=== PATIENT | male | born 1985 | race Caucasian/White ===

== ENCOUNTER 2022-01-29 20:31 | Emergency (ER) | payer OTHER, SELFPAY ==
--- NOTE | ~2022-01-29 | XR_ITS ---
EXAMINATION: XR ankle RT min 3V DATE: 01/29/2022 20:56 INDICATION: Lateral right ankle pain and swelling post twisting ankle injury TECHNIQUE: Anteroposterior, oblique, mortise, and lateral views of the right ankle were obtained. COMPARISON: None. FINDINGS: Alignment is normal. No fracture. Joint spaces are well maintained. No ankle joint effusion. Promin ent soft tissue swelling about the lateral malleolus. IMPRESSION: 1. No osseous abnormality. Reviewed, dictated and finalized at location A. ER ENGINE[facility] HELPER IMPRESSION: 1. No osseous abnormality.
--- NOTE | 2022-01-29 20:36 | ED.LOWEXIN ---
HPI - Extremity Injury (Lower) General Chief Complaint: Unspecified Stated Complaint: Rt ankle pain Time Seen by Provider: 01/29/22 20:37 Source: patient Mode of arrival: wheelchair Limitations: no limitations History of Present Illness complaint: ankle injury Onset (ago): hour(s) (6) Injury: Right: ankle Type of Injury: inversion Place: work Severity: moderate Relieving factors: rest Exacerbating factors: nothing Context: walking Associated symptoms: snap/pop sensation and swelling Other symptoms: none Related Data Home Medications Medication Instructions Recorded Confirmed No Home Medications 01/29/22 01/29/22 Allergies Allergy/AdvReac Type Severity Reaction Status Date / Time No Known Allergies Allergy Mild Verified 12/13/09 00:29 Review of Systems Review of Systems: All systems reviewed & are unremarkable except as noted in HPI and below PMFSH Past Medical History Medical History (Updated 01/29/22 @ 21:12 by Mart Merritt MD) No active medical problems Surgical History Surgical History (Updated 01/29/22 @ 20:47 by Mart Merritt MD) No pertinent past surgical history Social History Social History (Updated 01/29/22 @ 20:49 by Mart Merritt MD) Smoking packs per day: 1 Smoking cigarettes per day: 20.0 Smoking status: Current every day smoker Tobacco type: cigarettes and e-cigarettes/vaping Additional smoking assessment comments: trying to quit cigarettes and only vape but still has nicotine in the vape Exam Const: General: healthy appearing, no acute distress and alert Nutritional Appearance: average body habitus and well nourished Orientation/consciousness: patient oriented x3 HENMT: Head: normal to inspection Face and sinus: normal facial exam Mouth: Yes moist mucous membranes Eyes: Conjunctivae: conjunctivae normal Pupils: Equal, round and reactive pupils present EOM: EOMs intact bilaterally Neck: Neck: normal visual inspection Resp: Effort & Inspection: normal respiratory effort Auscultation: clear to auscultation bilaterally Cardio: Rate: regular rate Rhythm: regular rhythm GI: GI Palp: Yes Soft to palpation and No Tenderness to palpation present (GI) Auscultation: normal bowel sounds Back/Spine/Pelvis: Cervical Spine: cervical ROM normal Thoracic/Lumbar Spine: thoraco-lumbar ROM normal Skin: General skin exam: normal color Rashes: no rashes Neuro: General: patient oriented x3, moves all extremities, no meningeal signs, no focal motor deficits and CN's II-XI intact bilaterally Speech: normal speech Gait exam (Neuro): Normal gait present Extrem: General: normal exam except as noted Right lower extremity: ankle Details: tenderness Location: of the lateral malleolus, swelling Details: laterally and anteriorly and abnormal ROM Details: pain with active ROM Details: with inversion and with eversion and pain with passive ROM Details: with inversion and with eversion Psych: Appearance: grossly normal and well kempt Mental Status: mental status grossly normal Affect: normal affect Attitude: cooperative Thought content: Yes Normal thought content present Course Vital Signs Vital signs: Vital Signs Temperature 36.6 C 01/29/22 20:41 Pulse Rate 92 01/29/22 20:41 Respiratory Rate 20 01/29/22 20:41 Blood Pressure 126/74 01/29/22 20:41 Pulse Oximetry 100 01/29/22 20:41 Temperature 36.6 C 01/29/22 21:21 Pulse Rate 78 01/29/22 21:21 Respiratory Rate 20 01/29/22 21:21 Blood Pressure 120/74 01/29/22 21:21 Pulse Oximetry 99 01/29/22 21:21 MDM - Extremity Injury (Lower) Imaging Data Radiologist's impression: no fracture Discharge Plan Discharge Clinical Impression: Ankle sprain Qualifiers: Encounter type: initial encounter Involved ligament of ankle: tibiofibular ligament Laterality: right Qualified Code(s): S93.431A - Sprain of tibiofibular ligament of right ankle, initial encounter Patient Disposition:
[2022-01-29 20:41] VITALS: BP 126/74; PULSE 92; RESP 20; TEMP 36.6; O2SAT 100
[2022-01-29 21:21] VITALS: BP 120/74; PULSE 78; RESP 20; TEMP 36.6; O2SAT 99
== END 2022-01-29 21:22 | disposition home or self-care (01) ==
PROVIDERS: Emergency Provider Emergency Medicine
DX: S93.431A Sprain of tibiofibular ligament of right ankle, initial encounter (principal)
CPT/HCPCS: 29515; 73610; 99283; L4350

== ENCOUNTER 2023-03-11 22:13 | Emergency (ER) | payer OTHER, SELFPAY ==
[2023-03-11 22:25] VITALS: BP 128/68; PULSE 116; RESP 20; TEMP 37.2; O2SAT 96
[2023-03-11 23:54] LABS: Strep Group A RT-PCR NOT DETECTED (Negative)
== END 2023-03-12 00:15 | disposition left against medical advice (07) ==
PROVIDERS: Emergency Provider Emergency Medicine
DX: J02.9 Acute pharyngitis, unspecified (principal)
CPT/HCPCS: 87651; 99199

== ENCOUNTER 2025-03-04 16:10 | Emergency (ER) | payer BC, SELFPAY ==
--- NOTE | ~2025-03-04 | CT_ITS ---
CT soft tissue neck w con Ordering provider: Maria A Hidalgo History: 39 years Male with . R tonsillar abscesses . Comparison: None. Technique: CT soft tissues neck was performed with contrast. . Automated exposure control and iterat lorelei reconstruction technique were employed. The dose-length product was 522.43 mGy-cm. 100 mL Omnipaq ue 350 was given IV. Findings: LOWER HEAD: The visualized brain parenchyma, optic globes/orbits and mastoids are normal. Left maxi llary sinusitis. SALIVARY GLANDS: Normal. THYROID: Normal. SUPRAHYOID DEEP SPACES: Small right posterior triangle lymph nodes. CAROTID ARTERIES: Normal. JUGULAR VEINS: Normal. External jugular vein is noted on the left side. TONSILS: Right tonsillar abscess measuring 1.7 x 1.8 cm noted. Another locule anteriorly is noted whi ch measures about 1 cm. ORAL CAVITY: Partially obscured by dental amalgam but normal as visualized. PHARYNX, LARYNX AND TRACHEA: Patent and normal. No prevertebral soft tissue swelling. Slight narrowin g of the parapharyngeal area in the right side is noted. SUPERFICIAL SOFT TISSUES: Normal. No lymphadenopathy or neck mass. THORACIC INLET/VISUALIZED UPPER CHEST: Normal. SKELETAL: Normal. IMPRESSION: 1. Right tonsillar abscess. 2. Small lymph nodes in the right posterior triangle Reviewed, dictated and finalized at location A.
--- OUTSIDE RECORDS SUMMARY | 2025-03-04 16:14 | XMS_ITS | Encounter Summary ---
Author Organization [facility] Address [address] [place] [id number] Care Team Providers Care Medical Typist Name Role Phone Favio Still MD Primary Care Provider [phone] Encounter Details Date Type Department Care Team (Late st Contact Info) Description 03/03/2025 Scan [facility] [address] [place] [address] Scanned, [facility] Social History Tobacco Use Types Packs/Day Years Used Date Smoking Tobacco: Some Days Cigarettes Smokeless Tobacco: Current Chew Alcohol Use Standard Drinks/Week Comments Yes 0 (1 standard drink = 0.6 oz pur e alcohol) socially Sex and Gender Information Value Date Recorded Sex Assigned at Male 03/03/2025 5:32 PM CDT Legal Sex Male 7:51 AM CDT Gender Identity Not on file Sexual Orientation Not on file documented as of this encounter Plan of Treatment Not on file documented as of this encounter Visit Diagnoses Not on filedocumented in this encounter Additional Health Concerns Infection Onset Date Last Indicated Resolved Time COVID-19 Rule Out 03/03/2025 03/03/2025 03/03/2025 2:33 PM CDT Respiratory Rule-Out 03/03/2025 03/03/2025 025 2:39 PM CDT documented as of this encounter Care Teams Medical Typist Relationship Specialty Start Date End Date Favio Still MD [address] [place] [phone] PCP - General FAMILY PRACTICE 09/28/22 documented as of this encounter
--- OUTSIDE RECORDS SUMMARY | 2025-03-04 16:14 | XMS_ITS | Encounter Summary ---
Author Organization [facility] Address [address] [place] [id number] Care Team Providers Care Tobacco Prevention Health Educator Name Role Phone Favio Still MD Primary Care Provider [phone] Reason for Referral * Imaging (Emergency) - New Request Specialty Diagnoses / Procedures Referred By Von kerns Referred To Contact RADIOLOGY Procedures CT SOFT TISSUE NECK W Inderjit Patel MD [address] [place] [address] Phone: tel: fax: Referral ID Status Reason Start Date Expiration Date V isits Requested Visits Authorized [id number] New Request 03/03/2025 03/03/2026 1 1 Reason for Visit * Reason Comments Facial Pain Encounter Details Date Type Department Care Team (Late st Contact Info) Description 03/03/2025 1:40 PM CDT - 03/03/2025 6:06 PM CDT Emergency [facility] [address] [place] [address] [place] [address] Inderjit Lincoln MD [address] [place] [id number] Facial Pain Discharge Disposition: Left Against Medical Advice Social History Tobacco Use Types Packs/Day Years [...] on file documented as of this encounter Last Filed Vital Signs Vital Sign Reading Time Taken Comments Blood Pressure 123/79 03/03/2025 5:18 PM CDT Pulse 69 03/03/2025 5:18 PM CDT Temperature 37 C (98.6 F) 03/03/2025 5:18 PM CDT Respiratory Rate 16 03/03/2025 5:18 PM CDT Oxygen Saturation 95% 03/03/2025 5:18 PM CDT Inhaled Oxygen Concentration - - Weight 91.6 kg (202 lb) 03/03/2025 1:41 PM CDT Height 172.7 cm (5' 8 ) 03/03/2025 1:41 PM CDT Body Mass Index 30.71 03/03/2025 1:41 PM CDT documented in this encounter Medications at Time of Discharge amphetamine-dextr oamphetamine (ADDERALL) 15 MG tablet Take 1 tablet (15 mg total) by mouth 2 (two) times daily. Armodafinil 150 MG Tab Take 150 mg by mouth daily. HYDROcodone-aceta minophen (NORCO) 5-325 MG tabletIndications :Acute Pain < 3 Day Supply Take 1-2 tablets by mouth every 6 (six) hours as needed. Indications: Acute Pain < 3 Day Supply 12 tablet 04/29/2023 HYDROcodone-aceta minophen (NORCO) 5-325 MG tabletIndications :Acute Pain < 7 Day Supply Take 1-2 tablets by mouth every 6 (six) hours as needed for Pain. Indications: Acute Pain < 7 Day Supply 15 tablet 05/02/2023 documented as of this encounter ED Notes * Olga Patterson RN - 03/03/2025 6:00 PM CDT Ambulatory out of unit without difficulty. * Olga Patterson RN - 03/03/2025 5:56 PM CDT AMA paper signed. * Olga Patterson RN - 03/03/2025 5:48 PM CDT ERP and this nurse to room to discuss plan of care and risks and benefits of driving themselves to S. Patient again refusing ambulance transport. Wanting to go by POV. AMA form explained to patient. Repeated risks and benefits with patient and . * Olga Patterson RN - 03/03/2025 5:45 PM CDT Patient refusing ambulance transfer. ERP notified. * Olga Patterson RN - 03/03/2025 5:39 PM CDT EMS arrived for transfer.Report given. * Olga Patterson RN - 03/03/2025 5:18 PM CDT Resting offers no c/o. ERP in to talk to patient and family. Discussed plan of care. Patient agreeable to plan for transfer. * Olga Patterson RN - 03/03/2025 4:00 PM CDT Resting quietly offers no c/o. Waiting for test results. * Inderjit Lincoln MD - 03/03/2025 3:31 PM CDT Chief Complaint Chief Complaint Patient presents with Facial Pain History of Present Illness Patient is a 39-year-old male who presents with complaint of a sore throat that started last evening. Patient states he went to bed here in slight sore throat but is worse this morning. Patient states that hurts to swallow. Patient is complaining of pain radiating from the right side of his throat up to his ear. He also notes body aches. He denies subjective fevers. He denies any runny nose or cough. Mom is concerned that he possibly could have some type of throat abscess. Patient has not been taking any antibiotics recently. All review of systems negative. Medical History ALLERGIES: Review of patient's allergies indicates: No Known Allergies MEDICATIONS: Prior to Admission medications Medication Sig Start Date End Date Taking? Authorizing Provider amphetamine-dextroamphetamine (ADDERALL) 15 MG tablet Take 1 tablet (15 mg total) by mouth 2 (two) times daily. Yes Default History Genericprovider Armodafinil 150 MG Tab Take 150 mg by mouth daily. Patient not taking: Reported on 05/15/2023 Default History Genericprovider HYDROcodone-acetaminophen (NORCO) 5-325 MG tablet Take 1-2 tablets by mouth every 6 (six) hours as needed. Indications: Acute Pain < 3 Day Supply Patient not taking: Reported on 05/15/2023 04/29/23 Bobby Mayorga MD HYDROcodone-acetaminophen (NORCO) 5-325 MG tablet Take 1-2 tablets by mouth every 6 (six) hours as needed for Pain. Indications: Acute Pain < 7 Day Supply Patient not taking: Reported on 05/15/2023 05/02/23 Michael Marroquin MD PAST MEDICAL HISTORY: Past Medical History: Diagnosis Date Shift work sleep disorder PAST SURGICAL HISTORY: Past Surgical History: Procedure Laterality Date CARPAL TUNNEL RELEASE Right 04/18/2023 CARPAL TUNNEL RELEASE Left HC TRANSPOSITION ULNAR NERVE Right 04/18/2023 HERNIA REPAIR FAMILY HISTORY: Family History Problem Relation Name Age of Onset No Known Problems Mother No Known Problems Father SOCIAL HISTORY: Social History Tobacco Use Smoking status: Some Days Current packs/day: 0.10 Types: Cigarettes Smokeless tobacco: Current Types: Chew Vaping Use Vaping status: Never Used Substance Use Topics Alcohol use: Yes Comment: socially Drug use: Not Currently Review of Systems Review of Systems Constitutional: Positive for chills and fever. HENT: Positive for ear pain and sore throat. Negative for drooling and rhinorrhea. Eyes: Negative for redness and visual disturbance. Respiratory: Negative for cough, shortness of breath and wheezing. Cardiovascular: Negative for chest pain and palpitations. Gastrointestinal: Negative for abdominal pain, nausea and vomiting. Genitourinary: Negative for dysuria, flank pain, hematuria and urgency. Musculoskeletal: Positive for myalgias. Negative for back pain and neck pain. Skin: Negative for color change and rash. Neurological: Negative for dizziness and weakness. Psychiatric/Behavioral: Negative. Physical Exam Filed Vitals: 03/03/25 1530 03/03/25 1600 03/03/25 1630 03/03/25 1700 BP: 114/68 115/76 119/82 123/79 Pulse: Resp: Temp: TempSrc: SpO2: 93% 98% 96% 94% Weight: Height: Physical Exam Vitals and nursing note reviewed. Constitutional: General: He is not in acute distress. Appearance: Normal appearance. He is normal weight. He is not ill-appearing or toxic-appearing. HENT: Head: Normocephalic and atraumatic. Jaw: Trismus present. No pain on movement. Right Ear: Tympanic membrane normal. Left Ear: Tympanic membrane normal. Nose: Nose normal. No congestion or rhinorrhea. Mouth/Throat: Mouth: Mucous membranes are moist. Pharynx: Uvula midline. Pharyngeal swelling and posterior oropharyngeal erythema present. No oropharyngeal exudate or uvula swelling. Comments: Patient Eyes: Extraocular Movements: Extraocular movements intact. Pupils: Pupils are equal, round, and reactive to light. Cardiovascular: Rate and Rhythm: Normal rate and regular rhythm. Pulses: Normal pulses. Heart sounds: No murmur heard. Pulmonary: Effort: No respiratory distress. Breath sounds: No wheezing. Abdominal: General: Bowel sounds are normal. Palpations: Abdomen is soft. Tenderness: There is no abdominal tenderness. There is no guarding. Musculoskeletal: General: No tenderness or deformity. Normal range of motion. Cervical back: Normal range of motion and neck supple. Lymphadenopathy: Cervical: Cervical adenopathy present. Skin: General: Skin is warm and dry. Neurological: General: No focal deficit present. Mental Status: He is alert and oriented to person, place, and time. Cranial Nerves: No cranial nerve deficit. Psychiatric: Mood and Affect: Mood normal. Diagnostic Studies / Procedures ELECTROCARDIOGRAMS: No results found for this visit on 03/03/25. LABORATORY STUDIES: Results for orders placed or performed during the hospital encounter of 03/03/25 CBC W/DIFF AUTOMATED Result Value Ref Range WBC 11.67 (H) 4.50 - 11.00 x10'3/uL RBC 5.16 4.50 - 5.90 x10'6/uL HGB 16.4 14.0 - 18.0 G/DL HCT 48.3 43.0 - 54.0 % MCV 93.6 80.0 - 100.0 FL MCH 31.8 26.0 - 34.0 PG MCHC 34.0 31.0 - 37.0 G/DL RDW 13.1 11.6 - 14.8 % PLT 281 130 - 400 x10'3/uL MPV 9.9 7.0 - 12.0 FL CBC COMMENT AUTOMATED RBC MORPHOLOGY AND PLATELET EVALUATION NORMAL NEUTROPHILS % 83.6 (H) 40.0 - 74.0 % LYMPHOCYTES % 7.1 (L) 14.0 - 46.0 % MONOCYTES % 6.6 4.0 - 13.0 % EOSINOPHILS 2.1 0.0 - 7.0 % BASOPHILS 0.3 0.0 - 3.0 % IMMATURE GRANS % 0.3 0.0 - 0.43 % NRBC % 0.0 % ABS. NEUTROPHILS TOTAL 9.76 (H) 1.69 - 7.81 x10'3/uL ABS. LYMPHOCYTES 0.83 0.21 - 5.42 x10'3/uL ABS. MONOCYTES 0.77 0.04 - 1.37 x10'3/uL ABS. EOSINOPHILS 0.24 0.00 - 0.68 x10'3/uL ABS. BASOPHILS 0.04 0.00 - 0.08 x10'3/uL ABS. IMMATURE GRANULOCYTES 0.03 0.00 - 0.06 x10'3/uL ABS. NUCLEATED RBC'S 0.00 0.00 - 0.01 x10'3/uL BASIC METABOLIC PANEL Result Value Ref Range GLUCOSE 94 70 - 99 MG/DL BUN 16 7 - 18 MG/DL CREATININE S/P/B 1.28 (H) 0.50 - 1.20 MG/DL SODIUM S/P/B 139 136 - 145 MMOL/L POTASSIUM S/P/B 4.2 3.5 - 5.1 MMOL/L CHLORIDE S/P/B 103 100 - 108 MMOL/L CO2 30.2 21.0 - 32.0 MMOL/L CALCIUM S/P/B 8.4 (L) 8.5 - 10.1 MG/DL ANION GAP 5.8 5.0 - 15.0 MMOL/L BUN CREATININE RATIO 12.5 6 - 26 GFR ESTIMATE 74 (L) >90 ML/MIN/1.73 M2 CORONAVIRUS (COVID 19) Specimen: NASOPHARYNGEAL SWAB Result Value Ref Range CORONAVIRUS SARS COV 2 RNA NEGATIVE NEGATIVE SPECIMEN TYPE NASAL INFLUENZA A & B Specimen: NASAL Result Value Ref Range SPECIMEN TYPE NASOPHARYNX INFLUENZA A NEGATIVE NEGATIVE INFLUENZA B NEGATIVE NEGATIVE STREP A RAPID Specimen: THROAT Result Value Ref Range SPECIMEN TYPE THROAT RAPID STREP TEST NEGATIVE NEGATIVE IMAGING STUDIES CT SOFT TISSUE NECK W CON Final Result by User, [id number] (03/03 155) [address] [place] [address] EXAM: CT SOFT TISSUE NECK W CON DATE: 03/03/2025 COMPARISON: None INDICATION: Right side neck pain and swelling. Difficulty swallowing and sore throat. TECHNIQUE: Postcontrast imaging with 95 cc intravenous Isovue-370 right antecubital fossa. A dose lowering technique was used for this procedure, which may include, but is not limited to, dose reduction technique, automated exposure control, iterative reconstruction, ALARA (As Low As Reasonably Achievable), or Image Gently techniques. FINDINGS: There is moderate severity artifact from dental work. The region of the right palatine tonsil is diffusely enlarged compared to the left. There is mild flattening of the right lateral margin of the oropharynx. Best seen on the axial images are two small hypodense foci within this soft tissue fullness. These most likely represent small abscesses within the tonsil. Each measures about 6 mm. There may be a third similar appearing finding deeper near an external carotid artery branch. Normal enhancement of the parotid glands, submandibular glands, and thyroid. Normal prevertebral soft tissue thickness. Normal epiglottis. Normal appearance of a closed glottis. 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 Symmetric size of the internal jugular veins. With minimal fat in the neck, no lymph node enlargement. IMPRESSION: Abnormal appearance of the partially visualized right palatine tonsil region. Referred By: Interpreted By: Amrit Trevino MD, 03/03/2025 3:37 PM ED Course / Medical Decision Making Reevaluation at 3:58 PM. Patient is resting after receiving the Toradol and the Medrol. Patient appears to have tonsillar abscesses. Case was discussed with Dr. Trevino via the phone. I will call the [place] connect line exam feel the patient needs to be transferred for ENT evaluation this evening. 5:01 PM Case was discussed with Dr. Ortega, ENT for [facility]. He states that he would like to look at the CT scans himself and call me back. 5:[address] Ortega states that he was not able to review the CT report but feels the patient should be sent to [facility] for IV antibiotics and steroids overnight and ENT evaluation. 5:49 PM. The patient was about ready to get on the ambulance to go to [facility] when he change his mind. He states that he did not like the attitude of the ambulance crew and so he does notwant a ride in any ambulance to go to [place]. Patient is refusing ambulance transfer but will have his family member drive him to about be evaluated by ENT. I informed the patient that he would like to leave against my medical advice. Patient is of sound mind and judgment. The risks associated with the patient's actions were explained to the patient. Patient understands that they are foregoing the recommended treatment for their condition. Alternative treatment options were also suggested to the patient patient refused those treatment options. Patient signed the AMA form under their own volition. Patient voiced understanding with the AMA decision. Patient understands that foregoing the recommended treatment may result in permanent disability and including . Patient was urged to stay and reconsider. Patient refused to stay and reconsider any other options and signed the AMA form under their own volition. was was present for the discussion and for the signing of the form. Patient was urged to return with any concerns. Medical Decision Making Amount and/or Complexity of Data Reviewed Independent Historian: Details: Details of the history provided by the patient and his family members External Data Reviewed: notes. Details: Previous ED notes were reviewed Labs: ordered. Decision-making details documented in ED Course. Radiology: ordered. Decision-making details documented in ED Course. Discussion of management or test interpretation with external provider(s): Discussed case with the ENT surgeon at [facility] in [place]. Reviewed the CT findings. He accepted the patientfor transfer for further treatment and evaluation while Risk Decision regarding hospitalization. Clinical Impression Tonsillar abscess (Primary) Disposition: Transfer to Another Facility Inderjit Lincoln MD 03/03/252247 * Olga Patterson RN - 03/03/2025 3:00 PM CDT Resting eyes closed * Olga Patterson RN - 03/03/2025 3:00 PM CDT States feeling relief of pain following medication. Resting, lights turned down given warm blanket.Family remains in room. * Olga Patterson RN - 03/03/2025 2:23 PM CDT Returned from CT. Tolerated well. * Olga Patterson RN - 03/03/2025 1:40 PM CDT C/O pain and swelling to right side of face. Unknown injury. Throat sore. Pain with swallowing. Woke up around 0300 with pain. Color pink respirations even and unlabored. documented in this encounter Plan of Treatment Not on file documented as of this encounter Procedures Procedure Name Priority Date/Time Associated Diagnosis Comments CT SOFT TISSUE NECK W CON STAT 03/03/2025 2:19 PM CDT CORONAVIRUS (COVID 19) STAT 03/03/2025 2:00 PM CDT INFLUENZA A & B STAT 03/03/2025 2:00 PM CDT STREP A RAPID STAT 03/03/2025 2:00 PM CDT BASIC METABOLIC PANEL STAT 03/03/2025 2:00 PM CDT CBC W/DIFF AUTOMATED STAT 03/03/2025 2:00 PM CDT documented in this encounter Results * CT SOFT TISSUE NECK W CON (03/03/2025 2:19 PM CDT) Anatomical Region Laterality Modality Neck Computed Tomogra phy 03/03/2025 3:37 PM CDT Impressions 03/03/2025 3:47 PM CDT IMPRESSION: Abnormal appearance of the partially visualized right palatine tonsil region. Referred By: Interpreted By: Amrit Trevino MD, 03/03/2025 3:37 PM Narrative 03/03/2025 3:[address] [place] [address] EXAM: CT SOFT TISSUE NECK W CON DATE: 03/03/2025 COMPARISON: None INDICATION: Right side neck pain and swelling. Difficulty swallowing and sore throat. TECHNIQUE: Postcontrast imaging with 95 cc intravenous Isovue-370 right antecubital fossa. A dose lowering technique was used for this procedure, which may include, but is not limited to, dose reduction technique, automated exposure control, iterative reconstruction, ALARA (As Low As Reasonably Achievable), or Image Gently techniques. FINDINGS: There is moderate severity artifact from dental work. The region of the right palatine tonsil is diffusely enlarged compared to the left. There is mild flattening of the right lateral margin of the oropharynx. Best seen on the axial images are two small hypodense foci within this soft tissue fullness. These most likely represent small abscesses within the tonsil. Each measures about 6 mm. There may be a third similar appearing finding deeper near an external carotid artery branch. Normal enhancement of the parotid glands, submandibular glands, and thyroid. Normal prevertebral soft tissue thickness. Normal epiglottis. Normal appearance of a closed glottis. 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 Symmetric size of the internal jugular veins. With minimal fat in the neck, no lymph node enlargement. Procedure Note Amrit Trevino MD - 03/03/[address] [place] [address] EXAM: CT SOFT TISSUE NECK W CON DATE: 03/03/2025 COMPARISON: None INDICATION: Right side neck pain and swelling. Difficulty swallowing andsore throat. TECHNIQUE: Postcontrast imaging with 95 cc intravenous Isovue-370 rightantecubital fossa. A dose lowering technique was used for this procedure, which may include,but is not limited to, dose reduction technique, automated exposurecontrol, iterative reconstruction, ALARA (As Low As ReasonablyAchievable), or Image Gently techniques. FINDINGS: There is moderate severity artifact from dental work. Theregion of the right palatine tonsil is diffusely enlarged compared to theleft. There is mild flattening of the right lateral margin of theoropharynx. Best seen on the axial images are two small hypodense fociwithin this soft tissue fullness. These most likely represent smallabscesses within the tonsil. Each measures about 6 mm. There may be athird similar appearing finding deeper near an external carotid arterybranch. Normal enhancement of the parotid glands, submandibular glands, andthyroid. Normal prevertebral soft tissue thickness. Normal epiglottis.Normal appearance of a closed glottis. Prominent left anterior jugularvein is probably congenital variation. Symmetric size of the internaljugular veins. With minimal fat in the neck, no lymph node enlargement. IMPRESSION: Abnormal appearance of the partially visualized right palatinetonsil region. Referred By: Interpreted By: Amrit Trevino MD, 03/03/2025 3:37 PM us Inderjit Lincoln MD CT Final Result * (ABNORMAL) BASIC METABOLIC PANEL (03/03/2025 2:00 PM CDT) [facility] GLUCOSE 94 70 - 99 MG/DL 03/03/2025 2:31 PM CDT [facility] BUN 16 7 - 18 MG/DL 03/03/2025 2:31 PM CDT [facility] CREATININE S/P/B 1.28(H) 0.50 - 1.20 MG/DL 03/03/2025 2:31 PM CDT [facility] SODIUM S/P/B 139 136 - 145 MMOL/L 03/03/2025 2:31 PM CDT [facility] POTASSIUM S/P/B 4.2 3.5 - 5.1 MMOL/L 03/03/2025 2:31 PM CDT [facility] CHLORIDE S/P/B 103 100 - 108 MMOL/L 03/03/2025 2:31 PM CDT [facility] CO2 30.2 21.0 - 32.0 MMOL/L 03/03/2025 2:31 PM CDT [facility] CALCIUM S/P/B 8.4(L) 8.5 - 10.1 MG/DL 03/03/2025 2:31 PM CDT [facility] ANION GAP 5.8 5.0 - 15.0 MMOL/L 03/03/2025 2:31 PM CDT [facility] BUN CREATININE RATIO 12.5 6 - 26 03/03/2025 2:31 PM CDT [facility] GFR ESTIMATE 74(L) >90 ML/MIN/1.7 3 M2 03/03/2025 2:31 PM CDT [facility] Comment: NOTE: eGFR is not calculated for patients <18 years of age. This is an estimated GFR calculation using the new CKD EPI creatinine equation without race and so does not require a correction factor for race. This estimated GFR should not be used for calculating drug doses. 03/03/2025 2:00 PM CDT us Inderjit Lincoln MD LABORATORY Final Result [facility] [address] [place] [address], * (ABNORMAL) CBC W/DIFF AUTOMATED (03/03/2025 2:00 PM CDT) WBC 11.67(H) 4.50 - 11.00 x10'3/uL 03/03/2025 2:20 PM CDT [facility] RBC 5.16 4.50 - 5.90 x10'6/uL 03/03/2025 2:20 PM CDT [facility] HGB 16.4 14.0 - 18.0 G/DL 03/03/2025 2:20 PM CDT [facility] HCT 48.3 43.0 - 54.0 % 03/03/2025 2:20 PM CDT [facility] MCV 93.6 80.0 - 100.0 FL 03/03/2025 2:20 PM CDT [facility] MCH 31.8 26.0 - 34.0 PG 03/03/2025 2:20 PM CDT [facility] MCHC 34.0 31.0 - 37.0 G/DL 03/03/2025 2:20 PM CDT [facility] RDW 13.1 11.6 - 14.8 % 03/03/2025 2:20 PM CDT [facility] PLT 281 130 - 400 x10'3/uL 03/03/2025 2:20 PM CDT [facility] MPV 9.9 7.0 - 12.0 FL 03/03/2025 2:20 PM CDT [facility] CBC COMMENT AUTOMATED RBC MORPHOLOGY AND PLATELET EVALUATION NORMAL 03/03/2025 2:20 PM CDT [facility] NEUTROPHILS % 83.6(H) 40.0 - 74.0 % 03/03/2025 2:20 PM CDT [facility] LYMPHOCYTES % 7.1(L) 14.0 - 46.0 % 03/03/2025 2:20 PM CDT [facility] MONOCYTES % 6.6 4.0 - 13.0 % 03/03/2025 2:20 PM CDT [facility] EOSINOPHILS 2.1 0.0 - 7.0 % 03/03/2025 2:20 PM CDT [facility] BASOPHILS 0.3 0.0 - 3.0 % 03/03/2025 2:20 PM CDT [facility] IMMATURE GRANS % 0.3 0.0 - 0.43 % 03/03/2025 2:20 PM CDT [facility] NRBC % 0.0 % 03/03/2025 2:20 PM CDT [facility] ABS. NEUTROPHILS TOTAL 9.76(H) 1.69 - 7.81 x10'3/uL 03/03/2025 2:20 PM CDT [facility] ABS. LYMPHOCYTES 0.83 0.21 - 5.42 x10'3/uL 03/03/2025 2:20 PM CDT [facility] ABS. MONOCYTES 0.77 0.04 - 1.37 x10'3/uL 03/03/2025 2:20 PM CDT [facility] ABS. EOSINOPHILS 0.24 0.00 - 0.68 x10'3/uL 03/03/2025 2:20 PM CDT [facility] ABS. BASOPHILS 0.04 0.00 - 0.08 x10'3/uL 03/03/2025 2:20 PM CDT [facility] ABS. IMMATURE GRANULOCYTES 0.03 0.00 - 0.06 x10'3/uL 03/03/2025 2:20 PM CDT [facility] ABS. NUCLEATED RBC'S 0.00 0.00 - 0.01 x10'3/uL 03/03/2025 2:20 PM CDT [facility] 03/03/2025 2:00 PM CDT us Inderjit Lincoln MD LABORATORY Final Result Performing Organization Address [facility] Co de Phone Number [facility] [address] [place] [address], [place] * STREP A RAPID (03/03/2025 2:00 PM CDT) SPECIMEN TYPE THROAT 03/03/2025 2:03 PM CDT [facility] RAPID STREP TEST NEGATIVE NEGATIVE 03/03/2025 2:27 PM CDT [facility] STRUCTURE OF ANTERIOR PORTION OF NECK / Unknown 03/03/2025 2:00 PM CDT us Inderjit Lincoln MD MICROBIOLOGY - GENERAL ORDERA BLES Final Result Performing Organization Address [facility] Co de Phone Number [facility] [address] [place] [address], [place] * INFLUENZA A & B (03/03/2025 2:00 PM CDT) SPECIMEN TYPE NASOPHARYNX 03/03/2025 2:03 PM CDT [facility] INFLUENZA A NEGATIVE NEGATIVE 03/03/2025 2:39 PM CDT [facility] INFLUENZA B NEGATIVE NEGATIVE 03/03/2025 2:39 PM CDT [facility] NASAL STRUCTURE / Unknown 03/03/2025 2:00 PM CDT us Inderjit Lincoln MD MICROBIOLOGY - GENERAL ORDERA BLES Final Result Performing Organization Address City/[facility]/ZIP Co de Phone Number [facility] [address] [facility] [place] [address], [place] * CORONAVIRUS (COVID 19) (03/03/2025 2:00 PM CDT) CORONAVIRUS SARS COV 2 RNA NEGATIVE NEGATIVE 03/03/2025 2:33 PM CDT [facility] Comment: NEGATIVE RESULTS DO NOT RULE OUT COVID 19 AND SHOULD NOT BE USED THE SOLE BASIS FOR TREATMENT OR PATIENT MANAGEMENT DECISIONS, INCLUDING INFECTION CONTROL DECISIONS. NEGATIVE RESULTS SHOULD BE CONSIDERED IN THE CONTEXT OF A PATIENT'S RECENT EXPOSURES, HISTORY AND THE PRESENCE OF CLINICAL SIGNS AND SYMPTOMS CONSISTENT WITH COVID 19. THE ID NOW COVID-19 2.0 TEST HAS BEEN AUTHORIZED BY THE FDA UNDER EAU FOR USE BY AUTHORIZED LABORATORIES. PERFORMED BY NUCLEIC ACID AMPLIFICATION FOR MOLECULAR QUALITATIVE DETECTION OF SARS-COV-2. SPECIMEN TYPE NASAL 03/03/2025 2:03 PM CDT [facility] NASOPHARYNGEAL SWAB / Unknown 03/03/2025 2:00 PM CDT us Inderjit Lincoln MD MICROBIOLOGY - GENERAL ORDERA BLES Final Result [facility] [address] [place] [address], documented in this encounter Visit Diagnoses Diagnosis Tonsillar abscess- Primary Peritonsillar abscess documented in this encounter Administered Medications Inactive Administered Medications - up to 3 most recent administrations Medication Order MAR Action Action Date Dose Rate Site clindamycin (CLEOCIN) 900 mg in D5W 50 mL IVPB 900 mg, Intravenous, at 100 mL/hr, Once, 1 dose, On Sat03/03/25 at 1630 New Bag 03/03/2025 5:09 PM CDT 900 mg 100 mL/hr iopamidol (ISOVUE-370) 76 % injection 100 mL 100 mL, Intravenous, IMG once as needed, Contrast, 1 dose, Starting on Sat03/03/25 at 1417, Until Sat03/03/25 at 1418 Given 03/03/2025 2:18 PM CDT 100 mLs ketorolac (TORADOL) injection 30 mg 30 mg, Intravenous, Once, 1 dose, On Sat03/03/25 at 1415, For IV administration, give over 15 seconds. Given 03/03/2025 2:27 PM CDT 30 mg methylPREDNISolone sodium succinate (SOLU-Medrol) injection 125 mg 125 mg, Intravenous, Once, 1 dose, On Sat03/03/25 at 1400, If ordered IV, administer into a vein over 3-15 minutes. Doses >= 2 mg/kg or 250mg should be given by infusion, unless the benefits of IV injection outweigh the risks (life-threatening shock) Given 03/03/2025 2:27 PM CDT 125 mg documented in this encounter Active and Recently Administered Medications Times are shown in CDT. Scheduled Medication Order 03/01/2025 03/02/2025 03/03/2025 clindamycin (CLEOCIN) 900 mg in D5W 50 mL IVPB (COMPLETED) 900 mg, Intravenous, at 100 mL/hr, Once, 1 dose, On Sat03/03/25 at 1630 1709 (New Bag - Prov ider: Olga Patterson RN)1745 (Infusion Stop Time - Provider: Olga Patterson RN) ketorolac (TORADOL) injection 30 mg (COMPLETED) 30 mg, Intravenous, Once, 1 dose, On Sat03/03/25 at 1415, For IV administration, give over 15 seconds. 1427 (Given - Provid er: Olga Patterson RN) methylPREDNISolone sodium succinate (SOLU-Medrol) injection 125 mg (COMPLETED) 125 mg, Intravenous, Once, 1 dose, On Sat03/03/25 at 1400, If ordered IV, administer into a vein over 3-15 minutes. Doses >= 2 mg/kg or 250mg should be given by infusion, unless the benefits of IV injection outweigh the risks (life-threatening shock) 1427 (Given - Provid er: Olga Patterson RN) PRN Medication Order 03/01/2025 03/02/2025 03/03/2025 iopamidol (ISOVUE-370) 76 % injection 100 mL (COMPLETED) 100 mL, Intravenous, IMG once as needed, Contrast, 1 dose, Starting on Sat03/03/25 at 1417, Until Sat03/03/25 at 1418 1418 (Given - Provid er: Merlene Saucedo - Comment: 20G RAC) documented in this encounter Additional Health Concerns Infection Onset Date Last Indicated Resolved Time COVID-19 Rule Out 03/03/2025 03/03/2025 03/03/2025 2:33 PM CDT Respiratory Rule-Out 03/03/2025 03/03/2025 025 2:39 PM CDT documented as of this encounter Care Teams Tobacco Prevention Health Educator Relationship Specialty Start Date End Date Favio Still MD [address] [place] [phone] PCP - General FAMILY PRACTICE 09/28/22 documented as of this encounter
--- OUTSIDE RECORDS SUMMARY | 2025-03-04 16:14 | XMS_ITS | Clinical Summary ---
Author Organization [facility] Address formerly [facility] [place] [address] Care Team Providers Care Log Cutter Name Role Phone Favio Still MD Primary Care Provider [phone] Allergies No known active allergies Medications Armodafinil 150 MG Tab Take 150 mg by mouth daily. Active HYDROcodone-fiona taminophen (NORCO) 5-325 MG tabletIndicatio ns:Acute Pain < 3 Day Supply Take 1-2 tablets by mouth every 6 (six) hours as needed. Indications: Acute Pain < 3 Day Supply 12 tablet 3 Active Additional Information Patient not taking.Reported on 05/15/2023 HYDROcodone-fiona taminophen (NORCO) 5-325 MG tabletIndicatio ns:Acute Pain < 7 Day Supply Take 1-2 tablets by mouth every 6 (six) hours as needed for Pain. Indications: Acute Pain < 7 Day Supply 15 tablet 3 Active Additional Information Patient not taking.Reported on 05/15/2023 amphetamine-dex troamphetamine (ADDERALL) 15 MG tablet Take 1 tablet (15 mg total) by mouth 2 (two) times daily. Active Active Problems Problem Noted Date Diagnosed Date Carpal tunnel syndrome, left 04/10/2023 Carpal tunnel syndrome of right wrist 04/02/2023 Cubital tunnel syndrome on right 04/02/2023 Encounters Date Type Department Care Team Description 03/03/2025 8:31 PM CDT - 03/03/2025 11:00 PM CDT Emergency [facility] Emergency [address] [place] [address] Johny Valdivia MD Abscess Discharge Disposition: Left Against Medical Advice 03/03/2025 1:40 PM CDT - 03/03/2025 6:06 PM CDT Emergency [facility] Emergency Services [address] [place] [address] Inderjit Lincoln MD Facial Pain Discharge Disposition: Left Against Medical Advice 03/03/2025 [facility] Emergency [address] [place] [address] Scanned, [facility] 03/03/2025 Travel from Last 3 Months Family History Medical History Relation Comments No Known Problems Father No Known Problems Mother Relation Status Comments Father Alive Mother Alive Social History Tobacco Use Types Packs/Day Years Used Date Smoking Tobacco: Some Days Cigarettes Smokeless Tobacco: Current Chew Tobacco Cessation:Ready to Q uit: Not Asked; Counseling Given: Not Answered Alcohol Use Standard Drinks/Week Comments Yes 0 (1 standard drink = 0.6 oz pur e alcohol) socially Sex and Gender Information Value Date Recorded Sex Assigned at Male 03/03/2025 5:32 PM CDT Legal Sex Male 7:51 AM CDT Gender Identity Not on file Sexual Orientation Not on file Last Filed Vital Signs Vital Sign Reading Time Taken Comments Blood Pressure 109/68 03/03/2025 10:45 PM CDT Pulse 104 03/03/2025 8:29 PM CDT Temperature 36.9 C (98.4 F) 03/03/2025 8:29 PM CDT Respiratory Rate 14 03/03/2025 8:29 PM CDT Oxygen Saturation 96% 03/03/2025 10:53 PM CDT Inhaled Oxygen Concentration - - Weight 92.1 kg (203 lb) 03/03/2025 8:29 PM CDT Height 172.7 cm (5' 8 ) 03/03/2025 8:29 PM CDT Body Mass Index 30.87 03/03/2025 8:29 PM CDT Plan of Treatment Health Maintenance Due Date Last Done Comments Annual Physical 1990 Pneumococcal Vaccine: Pediat rics (0 to 5 Years) and At-Risk Patients (6 to 64 Years) (1 of 2 - PCV) 1993 Hepatitis C 2005 Hepatitis B Vaccines (1 of 3 - 19+ 3-dose series) 2006 COVID-19 Vaccine (1 - 2023-2 5 season) 2024 DTaP, Tdap and Td Vaccines ( 2 - Td or Tdap) 11/25/2031 11/25/2021 HPV Vaccines Aged Out No longer eligi ble based on patient's age to complete this topic Meningococcal B Vaccine Aged Out No l onger eligible based on patient's age to complete this topic Meningococcal Vaccine Aged Out No ludwig yun eligible based on patient's age to complete this topic RSV Immunizations Under 20 Months Aged Out No longer eligible based on patient's age to complete this topic Procedures Procedure Name Priority Date/Time Associated Diagnosis Comments CT SOFT TISSUE NECK W CON STAT 03/03/2025 2:19 PM CDT STREP A RAPID STAT 03/03/2025 2:00 PM CDT INFLUENZA A & B STAT 03/03/2025 2:00 PM CDT CORONAVIRUS (COVID 19) STAT 03/03/2025 2:00 PM CDT BASIC METABOLIC PANEL STAT 03/03/2025 2:00 PM CDT CBC W/DIFF AUTOMATED STAT 03/03/2025 2:00 PM CDT from Last 3 Months Results * CT SOFT TISSUE NECK W CON (03/03/2025 2:19 PM CDT) Anatomical Region Laterality Modality Neck Computed Tomogra phy 03/03/2025 3:37 PM CDT Impressions 03/03/2025 3:47 PM CDT IMPRESSION: Abnormal appearance of the partially visualized right palatine tonsil region. Referred By: Interpreted By: Amrit Trevino MD, 03/03/2025 3:37 PM Narrative 03/03/2025 3:47 PM [address]T [address] [place] [address] EXAM: CT SOFT TISSUE NECK W CON [...] Procedure Note Amrit Trevino MD - 03/03/[address] [place] [address] EXAM: CT SOFT TISSUE NECK W CON [...] By: Amrit Trevino MD, 03/03/2025 3:37 PM Inderjit Lincoln MD CT Final Result * CORONAVIRUS (COVID 19) (03/03/2025 2:00 PM CDT) [facility] CORONAVIRUS SARS COV 2 RNA NEGATIVE NEGATIVE 03/03/2025 2:33 PM CDT [facility] Comment: NEGATIVE RESULTS DO NOT RULE OUT [...] SPECIMEN TYPE NASAL 03/03/2025 2:03 PM CDT [facility] NASOPHARYNGEAL SWAB / Unknown 03/03/2025 2:00 PM CDT Inderjit Lincoln MD MICROBIOLOGY - GENERAL ORDERA BLES Final Result [facility] [address] [place] [address] [place] [address], * INFLUENZA A & B (03/03/2025 2:00 PM CDT) SPECIMEN TYPE NASOPHARYNX 03/03/2025 2:03 PM CDT [facility] INFLUENZA A NEGATIVE NEGATIVE 03/03/2025 2:39 PM CDT [facility] INFLUENZA B NEGATIVE NEGATIVE 03/03/2025 2:39 PM CDT [facility] NASAL STRUCTURE / Unknown 03/03/2025 2:00 PM CDT Inderjit Lincoln MD MICROBIOLOGY - GENERAL ORDERA BLES Final Result Performing Organization Address City/[facility]/ZIP Co de Phone Number [facility] [address] [place] [address], [place] * STREP A RAPID (03/03/2025 2:00 PM CDT) SPECIMEN TYPE THROAT 03/03/2025 2:03 PM CDT [facility] RAPID STREP TEST NEGATIVE NEGATIVE 03/03/2025 2:27 PM CDT [facility] STRUCTURE OF ANTERIOR PORTION OF NECK / Unknown 03/03/2025 2:00 PM CDT Inderjit Lincoln MD MICROBIOLOGY - GENERAL ORDERA BLES Final Result Performing Organization Address [facility]/ZIP Co de Phone Number [facility] [address] [place] [address], [place] * (ABNORMAL) BASIC METABOLIC PANEL (03/03/2025 2:00 PM CDT) GLUCOSE 94 70 - 99 MG/DL 03/03/2025 2:31 PM CDT [facility] BUN 16 7 - 18 MG/DL 03/03/2025 2:31 PM CDT [facility] CREATININE S/P/B 1.28(H) 0.50 - 1.20 MG/DL 03/03/2025 2:31 PM CDT [facility] SODIUM S/P/B 139 136 - 145 MMOL/L 03/03/2025 2:31 PM CDT [facility] POTASSIUM S/P/B 4.2 3.5 - 5.1 MMOL/L 03/03/2025 2:31 PM CDT [facility] CHLORIDE S/P/B 103 100 - 108 MMOL/L 03/03/2025 2:31 PM CDT [facility] CO2 30.2 21.0 - 32.0 MMOL/L 03/03/2025 2:31 PM CDT [facility] CALCIUM S/P/B 8.4(L) 8.5 - 10.1 MG/DL 03/03/2025 2:31 PM CDT [facility] ANION GAP 5.8 5.0 - 15.0 MMOL/L 03/03/2025 2:31 PM CDT [facility] BUN CREATININE RATIO 12.5 6 - 26 03/03/2025 2:31 PM CDT [facility] GFR ESTIMATE 74(L) >90 ML/MIN/1.7 3 M2 03/03/2025 2:31 PM CDT [facility] Comment: NOTE: eGFR is not calculated for patients <18 years of age. This is an estimated GFR calculation using the new CKD EPI creatinine equation without race and so does not require a correction factor for race. This estimated GFR should not be used for calculating drug doses. 03/03/2025 2:00 PM CDT us Inderjit Lincoln MD LABORATORY Final Result [facility] [address] [place] [address], * (ABNORMAL) CBC W/DIFF AUTOMATED (03/03/2025 2:00 PM CDT) WBC 11.67(H) 4.50 - 11.00 x10'3/uL 03/03/2025 2:20 PM CDT [facility] RBC 5.16 4.50 - 5.90 x10'6/uL 03/03/2025 2:20 PM CDT [facility] HGB 16.4 14.0 - 18.0 G/DL 03/03/2025 2:20 PM CDT [facility] HCT 48.3 43.0 - 54.0 % 03/03/2025 2:20 PM CDT [facility] MCV 93.6 80.0 - 100.0 FL 03/03/2025 2:20 PM CDT [facility] MCH 31.8 26.0 - 34.0 PG 03/03/2025 2:20 PM CDT [facility] MCHC 34.0 31.0 - 37.0 G/DL 03/03/2025 2:20 PM CDT [facility] RDW 13.1 11.6 - 14.8 % 03/03/2025 2:20 PM CDT [facility] PLT 281 130 - 400 x10'3/uL 03/03/2025 2:20 PM CDT [facility] MPV 9.9 7.0 - 12.0 FL 03/03/2025 2:20 PM CDT [facility] CBC COMMENT AUTOMATED RBC MORPHOLOGY AND PLATELET EVALUATION NORMAL 03/03/2025 2:20 PM CDT [facility] NEUTROPHILS % 83.6(H) 40.0 - 74.0 % 03/03/2025 2:20 PM CDT [facility] LYMPHOCYTES % 7.1(L) 14.0 - 46.0 % 03/03/2025 2:20 PM CDT [facility] MONOCYTES % 6.6 4.0 - 13.0 % 03/03/2025 2:20 PM CDT [facility] EOSINOPHILS 2.1 0.0 - 7.0 % 03/03/2025 2:20 PM CDT [facility] BASOPHILS 0.3 0.0 - 3.0 % 03/03/2025 2:20 PM CDT [facility] IMMATURE GRANS % 0.3 0.0 - 0.43 % 03/03/2025 2:20 PM CDT [facility] NRBC % 0.0 % 03/03/2025 2:20 PM CDT [facility] ABS. NEUTROPHILS TOTAL 9.76(H) 1.69 - 7.81 x10'3/uL 03/03/2025 2:20 PM CDT [facility] ABS. LYMPHOCYTES 0.83 0.21 - 5.42 x10'3/uL 03/03/2025 2:20 PM CDT [facility] ABS. MONOCYTES 0.77 0.04 - 1.37 x10'3/uL 03/03/2025 2:20 PM CDT [facility] ABS. EOSINOPHILS 0.24 0.00 - 0.68 x10'3/uL 03/03/2025 2:20 PM CDT [facility] ABS. BASOPHILS 0.04 0.00 - 0.08 x10'3/uL 03/03/2025 2:20 PM CDT [facility] ABS. IMMATURE GRANULOCYTES 0.03 0.00 - 0.06 x10'3/uL 03/03/2025 2:20 PM CDT [facility] ABS. NUCLEATED RBC'S 0.00 0.00 - 0.01 x10'3/uL 03/03/2025 2:20 PM CDT [facility] 03/03/2025 2:00 PM CDT us Inderjit Lincoln MD LABORATORY Final Result [facility] [address] [place] [address], from Last 3 Months Insurance [facility] Care Teams Log Cutter Relationship Specialty Start Date End Date Favio Still MD [address] [place] [phone] PCP - General FAMILY PRACTICE 09/28/22
--- OUTSIDE RECORDS SUMMARY | 2025-03-04 16:14 | XMS_ITS | Encounter Summary ---
Author Organization [facility] Address [address] [place] [id number] Care Team Providers Care Television Writer Name Role Phone Favio Still MD Primary Care Provider Encounter Details Date Type Department Care Team (Latest Contact Info) Description 03/03/2025 Travel Social History Tobacco Use Types Packs/Day Years [...] documented as of this encounter Care Teams Television Writer Relationship Specialty Start Date End Date Favio Still MD [address] [place] [phone] PCP - General FAMILY PRACTICE 09/28/22 documented as of this encounter
--- OUTSIDE RECORDS SUMMARY | 2025-03-04 16:14 | XMS_ITS | Encounter Summary ---
Author Organization [facility] Address [address] [place] [address] Care Team Providers Care Shredder Tender Name Role Phone Favio Still MD Primary Care Provider Reason for Visit * Reason Comments Abscess Encounter Details Date Type Department Care Team (Late st Contact Info) Description 03/03/2025 8:31 PM CDT - 03/03/2025 11:00 PM CDT Emergency [facility] Emergency [address] [place], [place] [address] Johny Valdivia MD [address] [place] [phone] Abscess Discharge Disposition: Left Against Medical Advice Social [...] Mass Index 30.87 03/03/2025 8:29 PM CDT documented in this encounter Discharge Instructions * Discharge Instructions* Ana Mar MD - 03/03/2025 10:46 PM CDT ENT DISCHARGE INSTRUCTIONS: -You a few small abscesses within your tonsils called an intratonsillar abscess -These are very small and do not require drainage -Take your Augmentin (antibiotic) as prescribed -For pain,alternate Tylenol and ibuprofen every 3 hours (for example:9am- take Tylenol, 12pm-take ibuprofen, 3pm take tylenol) -If you experience fever>100.5, severe pain, severe swelling, difficulty handling secretions, difficulty breathing return to nearest ED -Follow-up with PCP if symptoms do not improve -Please call [place] [facility] at [phone] with any questions or concerns documented in this encounter Medications at Time [...] as of this encounter ED Notes * Sheng Cannon RN - 03/03/2025 10:57 PM CDT Staff notified this RN that the patient was walking out of ER at this time. * Sheng Cannon RN - 03/03/2025 10:45 PM CDT ENT has seen the patient. Patient states they were not much help . * Sheng Cannon RN - 03/03/2025 10:21 PM CDT Notified provider the patient states he is having difficulty swallowing. Provider aware and states ENT has been contacted to evaluate the patient. * Vani Sumner RN - 03/03/2025 8:29 PM CDT Pt arrives to ED for c/o abscess in his neck. Pt here for ENT. Pt was seen at [place] and sent here. documented in this encounter Plan of Treatment Not on file documented as of this encounter Visit Diagnoses Not on filedocumented in this encounter Care Teams Shredder Tender Relationship Specialty Start Date End Date Favio Still MD [address] [place] [phone] PCP - General FAMILY PRACTICE 09/28/22 documented as of this encounter
--- OUTSIDE RECORDS SUMMARY | 2025-03-04 16:14 | XMS_ITS | Encounter Summary ---
Author Organization [facility] Address [address] [place] [id number] Care Team Providers Care Assistant Sales Manager Name Role Phone Bev Seals Primary Care Provider Favio Still MD Primary Care Provider Encounter Details Date Type Department Care Team (Late st Contact Info) Description 05/02/2019 Abstract [facility] CONVERSION [address] [place] [address] , Generic Conversion, Social History Tobacco Use Types Packs/Day Years Used Date Smoking Tobacco: Never Assessed Sex and Gender Information Value Date Recorded [...] documented as of this encounter Care Teams Assistant Sales Manager Relationship Specialty Start Date End Date Bev Seals FNP [address] [place] [address] [place] [phone] PCP - General Nurse Practitioner Family 12/17/1809/27/22 Favio Still MD [address] [place] [phone] PCP - General FAMILY PRACTICE 09/28/22 documented as of this encounter
[2025-03-04 16:33] VITALS: BP 115/75; PULSE 94; RESP 16; TEMP 37.1; O2SAT 98
--- NOTE | 2025-03-04 17:56 | ED_ITS ---
HPI - General Adult General Chief complaint: Dental/Oral <KAMALJIT Ng Last Filed: 03/04/25 18:17> Stated complaint: Tonsil abscesses-sent by <KAMALJIT Ng Last Filed: 03/04/25 18:17> Time Seen by Provider: 03/04/25 17:56 <KAMALJIT Ng Last Filed: 03/04/25 18:17> Focused HPI: Patient is a 39-year-old male who presents the ED with c/o sore throat, difficulty swallowing. Patient reports he developed sore throat yesterday morning. He was seen at [facility] yesterday and diagnosed with multiple abscesses of his right tonsil. Tested negative for Strep. States he was told they were too small to drain, however he was referred to [facility] in [facility] to be admitted for IV antibiotics and see ENT in the morning. Patient reports he went to [facility], but was ultimately discharged home on Keflex. Today, has been having increased difficulty swallowing, difficulty keeping down food/drink/saliva. Also reported fever today, up to 102.4F. Prompted here for further eval. Denies nausea, difficulty breathing. GENERAL: Well-appearing, well-nourished, and in no acute distress. HEAD: Normocephalic, atraumatic. ENT: Posterior pharynx erythema. Right tonsillar region does appear enlarged with some protrusion of soft palate, slight deviation of uvula to the left. No exudate. Airway is visibly patent. CHEST: Clear to auscultation. ?No respiratory distress. HEART: Regular rate and rhythm.? NEURO: ?Alert and oriented x3. Patient screened in triage and initial orders placed.? ?Additional care and disposition to be based upon?diagnostic testing and treatment. <KAMAJLIT Ng Last Filed: 03/04/25 18:17> Source: patient <KAMALJIT Ng Last Filed: 03/04/25 18:17> Mode of arrival: ambulatory <KAMALJIT Ng Last Filed: 03/04/25 18:17> Limitations: no limitations <Maria A Hidalgo PA-C - Last Filed: 03/04/25 18:17> History of Present Illness HPI narrative: Agree with the above triage note. At the time my evaluation the patient states he has pain with swallowing but is able to tolerate his secretions. < Angie Jha PA-C - Last Filed: 03/05/25 02:14> Related Data Allergies/adverse reactions: Allergies Allergy/AdvReac Type Severity Reaction Status Date / Time No Known Allergies Allergy Mild Verified 03/04/25 16:11 <Maria A Hidalgo PA-C - Last Filed: 03/04/25 18:17> Review of Systems 2 Review of Systems: All systems reviewed & are unremarkable except as noted in HPI and below <Angie Jha PA-C - Last Filed: 03/05/25 02:14> PMFSH Past Medical History Medical History: Medical History No active medical problems <Maria A Hidalgo PA-C - Last Filed: 03/04/25 18:17> Surgical History Surgical History: Surgical History No pertinent past surgical history <Maria A Hidalgo PA-C - Last Filed: 03/04/25 18:17> Social History Social History: Social History Smoking packs per day: 1 Smoking cigarettes per day: 20.0 Smoking status: Current every day smoker Tobacco type: cigarettes and e-cigarettes/vaping Additional smoking assessment comments: trying to quit cigarettes and only vape but still has nicotine in the vape <Maria A Hidalgo PA-C - Last Filed: 03/04/25 18:17> Exam 2 Narrative: GENERAL: Well-appearing, well-nourished, and in no acute distress. HEAD: Normocephalic, atraumatic. EYES: EOMI. ENT: Nares clear, no rhinorrhea or epistaxis. Mucous membranes moist. Bilateral TMs are bustos nonbulging with normal canals. The right unilateral tonsillar hypertrophy with erythema to the posterior pharynx, no uvular deviation, no airway compromise, no exudates. No trismus. Patient is tolerating secretions. He does have hot potato voice. NECK: Supple. CHEST: Clear to auscultation. No respiratory distress. HEART: Regular rate and rhythm. No murmur heard. Normal peripheral pulses. EXTREMITIES: Normal range of motion. No edema. SKIN: Warm, dry, no rash. NEURO: No focal deficits. Alert and oriented x3 <KAMALJIT Kelly Last Filed: 03/05/25 02:14> Course Vital Signs Vital signs: Vital Signs Temperature 98.8 F 03/04/25 16:33 Pulse Rate 94 03/04/25 16:33 Respiratory Rate 16 03/04/25 16:33 Blood Pressure 115/75 03/04/25 16:33 Pulse Oximetry 98 03/04/25 16:33 Oxygen Delivery Room Air 03/04/25 16:33 Temperature 98.9 F 03/05/25 00:27 Pulse Rate 73 03/05/25 00:27 Respiratory Rate 14 03/05/25 00:27 Blood Pressure 143/89 H 03/05/25 00:27 Pulse Oximetry 97 03/05/25 00:27 Oxygen Delivery Room Air 03/04/25 16:33 <KAMALJIT Ng Last Filed: 03/04/25 18:17> Vital Signs Temperature 98.8 F 03/04/25 16:33 Pulse Rate 94 03/04/25 16:33 Respiratory Rate 16 03/04/25 16:33 Blood Pressure 115/75 03/04/25 16:33 Pulse Oximetry 98 03/04/25 16:33 Oxygen Delivery Room Air 03/04/25 16:33 Temperature 98.9 F 03/05/25 00:27 Pulse Rate 73 03/05/25 00:27 Respiratory Rate 14 03/05/25 00:27 Blood Pressure 143/89 H 03/05/25 00:27 Pulse Oximetry 97 03/05/25 00:27 Oxygen Delivery Room Air 03/04/25 16:33 <KAMALJIT Kelly Last Filed: 03/05/25 02:14> Medical Decision Making MDM Narrative Medical decision making narrative: MSE by CASEY in triage. <Maria A Hidalgo PA-C - Last Filed: 03/04/25 18:17> MSE by CASEY in triage. 39-year-old male presents to the emergency department for 1 day of right-sided sore throat. Patient went to [facility] yesterday and diagnosed with several small PTH to the right tonsil. He was sent to [facility] for admission for IV antibiotics ENT consult, however patient was ultimately discharged home with Keflex. When he woke up today around 1:00 p.m he went to his PCP's office and was given IM Toradol advised to come to the ED. upon arrival to the ED triage vitals were stable. Exam is significant for erythema to the posterior pharynx, mild right tonsillar hypertrophy with no uvular deviation, mild dysphonia, no trismus, patient tolerating secretions. Lab work obtained in triage revealed leukocytosis of 12.7 with neutrophils of 91.4%. Lactic elevated at 2.3, fluids provided. Attala test negative. Patient did have negative COVID, flu, RSV and strep yesterday at [facility]. CT soft tissue neck shows right tonsillar abscess measuring 1.7 x 1.8 cm noted with another locule anteriorly noted which measures 1 cm. Patient updated on results. He was given IV Decadron, fluids, Unasyn, Toradol and Holden with improvement. He continues to tolerate p.o. intake. I discussed findings with ENT, Dr. Winkler, who feels patient is safe to be discharged home with outpatient follow-up. Advises to have the patient discontinue Keflex, start Augmentin. Will also have the patient continue his prednisone (on 40mg qd x5 days) for comfort and prescribe naproxen for pain and Holden for breakthrough pain. Discussed strict ED return precautions. He and his are agreeable with the plan verbalized understanding. Discharged in stable condition. <Angie Jha PA-C - Last Filed: 03/05/25 02:14> Vital Signs Vital Signs: Vital Signs Temperature 98.8 F 03/04/25 16:33 Pulse Rate 94 03/04/25 16:33 Respiratory Rate 16 03/04/25 16:33 Blood Pressure 115/75 03/04/25 16:33 Pulse Oximetry 98 03/04/25 16:33 Oxygen Delivery Room Air 03/04/25 16:33 Temperature 98.9 F 03/05/25 00:27 Pulse Rate 73 03/05/25 00:27 Respiratory Rate 14 03/05/25 00:27 Blood Pressure 143/89 H 03/05/25 00:27 Pulse Oximetry 97 03/05/25 00:27 Oxygen Delivery Room Air 03/04/25 16:33 <KAMALJIT Ng Last Filed: 03/04/25 18:17> Vital Signs Temperature 98.8 F 03/04/25 16:33 Pulse Rate 94 03/04/25 16:33 Respiratory Rate 16 03/04/25 16:33 Blood Pressure 115/75 03/04/25 16:33 Pulse Oximetry 98 03/04/25 16:33 Oxygen Delivery Room Air 03/04/25 16:33 Temperature 98.9 F 03/05/25 00:27 Pulse Rate 73 03/05/25 00:27 Respiratory Rate 14 03/05/25 00:27 Blood Pressure 143/89 H 03/05/25 00:27 Pulse Oximetry 97 03/05/25 00:27 Oxygen Delivery Room Air 03/04/25 16:33 <KAMALJIT Kelly Last Filed: 03/05/25 02:14> Lab Data Result diagrams: 03/04/25 18:08 03/04/25 18:08 <KAMALJIT Ng Last Filed: 03/04/25 18:17> Labs: Lab Results 03/04/25 03/05/25 Range/Units 18:08 01:40 WBC 12.7 H (4.5-10.0) K/mm3 RBC 5.07 (4.6-6.20) M/mm3 Hgb 16.1 (14.0-18.0) g/dL Hct 47.6 (42.0-52.0) % MCV 93.9 (80-100) fl MCH 31.8 (26-34) pg MCHC 33.8 (32-36) g/dl RDW 13.2 (11.5-14.5) % Plt Count 224 (150-375) k/mm3 MPV 10.0 (7.4-10.4) fl Immature Gran % (Auto) 0.4 (0-0.5) % Neut % (Auto) 91.4 H (45.5-73.1) % Lymph % (Auto) 3.3 L (18.3-44.2) % Attala % (Auto) 4.7 (2.6-8.5) % Eos % (Auto) 0.0 (0-4.4) % Baso % (Auto) 0.2 (0.2-1.2) % Lymph # (Auto) 0.42 L (0.9-3.2) K/mm3 Attala # (Auto) 0.6 (0.1-0.6) K/mm3 Eos # (Auto) 0.0 (0-0.3) K/mm3 Baso # (Auto) 0.0 (0.0-0.1) K/mm3 Abs Immat Gran (auto) 0.05 H (0.00-0.031) K/mm3 Absolute Neuts (auto) 11.6 H (1.3-6.7) K/mm3 Absolute Nucleated RBC 0.000 (0.0-0.012) K/mm3 Nucleated RBC % 0.0 (0.0-0.2) % Sodium 137 (137-145) mmol/L Potassium 3.7 (3.4-5.0) mmol/L Chloride 100 (98-107) mmol/L Carbon Dioxide 23 (22-30) mmol/L Anion Gap 14 H (4-12) mmol/L BUN 24 H (9-20) mg/dL Creatinine 1.25 (0.7-1.3) mg/dL Estim Creat Clear Calc 79 ml/min Estimated GFR > 60 (59 - ) Glucose 113 H (65-110) mg/dL Lactic Acid 2.3 H 1.2 (0.7-2.0) mmol/L Calcium 8.4 (8.4-10.2) mg/dL Monoscreen Negative (Negative) <Maria A Hidalgo PA-C - Last Filed: 03/04/25 18:17> Lab Results 03/04/25 03/05/25 Range/Units 18:08 01:40 WBC 12.7 H (4.5-10.0) K/mm3 RBC 5.07 (4.6-6.20) M/mm3 Hgb 16.1 (14.0-18.0) g/dL Hct 47.6 (42.0-52.0) % MCV 93.9 (80-100) fl MCH 31.8 (26-34) pg MCHC 33.8 (32-36) g/dl RDW 13.2 (11.5-14.5) % Plt Count 224 (150-375) k/mm3 MPV 10.0 (7.4-10.4) fl Immature Gran % (Auto) 0.4 (0-0.5) % Neut % (Auto) 91.4 H (45.5-73.1) % Lymph % (Auto) 3.3 L (18.3-44.2) % Attala % (Auto) 4.7 (2.6-8.5) % Eos % (Auto) 0.0 (0-4.4) % Baso % (Auto) 0.2 (0.2-1.2) % Lymph # (Auto) 0.42 L (0.9-3.2) K/mm3 Attala # (Auto) 0.6 (0.1-0.6) K/mm3 Eos # (Auto) 0.0 (0-0.3) K/mm3 Baso # (Auto) 0.0 (0.0-0.1) K/mm3 Abs Immat Gran (auto) 0.05 H (0.00-0.031) K/mm3 Absolute Neuts (auto) 11.6 H (1.3-6.7) K/mm3 Absolute Nucleated RBC 0.000 (0.0-0.012) K/mm3 Nucleated RBC % 0.0 (0.0-0.2) % Sodium 137 (137-145) mmol/L Potassium 3.7 (3.4-5.0) mmol/L Chloride 100 (98-107) mmol/L Carbon Dioxide 23 (22-30) mmol/L Anion Gap 14 H (4-12) mmol/L BUN 24 H (9-20) mg/dL Creatinine 1.25 (0.7-1.3) mg/dL Estim Creat Clear Calc 79 ml/min Estimated GFR > 60 (59 - ) Glucose 113 H (65-110) mg/dL Lactic Acid 2.3 H 1.2 (0.7-2.0) mmol/L Calcium 8.4 (8.4-10.2) mg/dL Monoscreen Negative (Negative) <KAMALJIT Kelly Last Filed: 03/05/25 02:14> Discharge Plan Discharge Clinical Impression: Abscess, intratonsillar <KAMALJIT Ng Last Filed: 03/04/25 18:17> Patient Disposition: Home <KAMALJIT Ng Last Filed: 03/04/25 18:17> Condition: Stable <KAMALJIT Ng Last Filed: 03/04/25 18:17> Instructions: Antibiotic Form, Tonsillitis (ED) <KAMALJIT Ng Last Filed: 03/04/25 18:17> Additional Instructions: You were evaluated in the emergency department for right-sided sore throat. You were found have a 1.7 x 1.8 cm right tonsillar abscess. Please stop taking the cephalexin and start taking the Augmentin that I have prescribed you. Continue taking the prednisone as directed. You can take naproxen as needed for pain and Holden for breakthrough pain. Follow-up closely with ENT. Return to the emergency department if you developed stiffness in her neck, vomiting, your unable to keep down food or fluids, difficulty breathing, increased difficulty swallowing, or other concerning symptoms. <KAMALJIT Ng Last Filed: 03/04/25 18:17> Patient Language: Kiswahili <KAMALJIT Ng Last Filed: 03/04/25 18:17> Prescriptions: New amoxicillin-pot clavulanate 875-125 mg tablet 1 tablet PO Q12H Qty: 14 0RF hydrocodone-acetaminophen 5-325 mg tablet 1 tablet PO Q8H PRN (Reason: pain) Qty: 14 0RF naproxen 500 mg tablet 500 mg PO BID PRN (Reason: pain) Qty: 20 0RF <KAMALJIT Ng Last Filed: 03/04/25 18:17> Follow-up/Referrals: Micky Winkler MD [Physician] - [place],MD Favio [Primary Care Provider] - <Maria A Hidalgo PA-C - Last Filed: 03/04/25 18:17> Stand Alone Forms: Work/School Release IP <Maria A Hidalgo PA-C - Last Filed: 03/04/25 18:17>
[2025-03-04] MEDS: LIDOCAINE 2% VISC SOLN 15 ML UDC PO (18:09)
[2025-03-04] MEDS: dexAMETHasone SOD PHOS INJ 10 MG/ML 1 ML VIAL IV PUSH (18:09)
[2025-03-04 18:13] VITALS: BP 125/80; PULSE 96; RESP 18; O2SAT 97
[2025-03-04 18:26] LABS: Basophils Percent Auto 0.2 % (0.2-1.2); Hematocrit 47.6 % (42.0-52.0); Hemoglobin 16.1 g/dL (14.0-18.0); Immature Granulocyte Absolute 0.05 K/mm3 (0.00-0.031); Immature Granulocyte Percent A 0.4 % (0-0.5); Lymphocytes Absolute Auto 0.42 K/mm3 (0.9-3.2); Lymphocytes Percent Auto 3.3 % (18.3-44.2); Mean Corpuscular HGB Conc 33.8 g/dl (32-36); Mean Corpuscular Hemoglobin 31.8 pg (26-34); Mean Corpuscular Volume 93.9 fl (80-100); Monocytes Absolute Auto 0.6 K/mm3 (0.1-0.6); Monocytes Percent Auto 4.7 % (2.6-8.5); Neutrophils Absolute Auto 11.6 K/mm3 (1.3-6.7); Neutrophils Percent Auto 91.4 % (45.5-73.1); Platelet Count Result 224 k/mm3 (150-375); Red Blood Count 5.07 M/mm3 (4.6-6.20); Red Cell Distribution Width 13.2 % (11.5-14.5); White Blood Count 12.7 K/mm3 (4.5-10.0)
[2025-03-04 18:36] LABS: Lactic Acid Reflex 2.3 mmol/L (0.7-2.0)
[2025-03-04 18:37] LABS: Anion Gap 14 mmol/L (4-12); Blood Urea Nitrogen 24 mg/dL (9-20); Calcium 8.4 mg/dL (8.4-10.2); Carbon Dioxide 23 mmol/L (22-30); Chloride 100 mmol/L (98-107); Estimated CRCL calculation 79 ml/min; Estimated Glomerular Filt Rate > 60; Glucose 113 mg/dL (65-110); Monoscreen Negative (Negative); Negative Monotest Control Negative (Negative); Positive Monotest Control Positive (Positive); Potassium 3.7 mmol/L (3.4-5.0); Sodium 137 mmol/L (137-145)
[2025-03-04 20:24] LABS: Reflex Lactic Acid Yes or No Add Lactic
[2025-03-04 21:05] VITALS: BP 126/71; PULSE 90; RESP 16; O2SAT 98
[2025-03-05] MEDS: AMPICILLIN SULB 3 GM/NS 100 ML 3 GM/100 ML VIAL IVPB (00:20)
[2025-03-05] MEDS: SODIUM CHLORIDE 0.9% IV 1,000 ML 999 ML IV CONT (00:21)
[2025-03-05 00:27] VITALS: BP 143/89; PULSE 73; RESP 14; TEMP 37.2; O2SAT 97
[2025-03-05] MEDS: KETOROLAC 30 MG/ML VIAL (*BKC) IV PUSH (00:34)
--- OUTSIDE RECORDS SUMMARY | 2025-03-05 01:07 | XMS_ITS | Encounter Summary ---
Author Organization [facility] Address [address] [place] [id number] Care Team Providers Care Underwear Trimmer Name Role Phone Favio Still MD Primary Care Provider Reason for Visit * Reason Comments Abscess Encounter Details Date Type Department Care Team (Late st Contact Info) Description 03/03/2025 8:31 PM CDT - 03/03/2025 11:00 PM CDT Emergency [facility] [address], [place] [id number] Johny Valdivia MD [address] [place] [address] [id number] Abscess Discharge Disposition: Left Against Medical Advice [...] if symptoms do not improve -Please call [facility] at [phone] with any questions or concerns documented in this encounter Medications at Time of Discharge amoxicillin-clavu lanate (AUGMENTIN) 875-125 MG tablet Take 1 tablet (875 mg total) by mouth 2 (two) times daily for 7 days. 14 tablet 03/04/2025 03/11/2025 amphetamine-dextr oamphetamine (ADDERALL) 15 MG tablet Take [...] been contacted to evaluate the patient. * Johny Valdivia MD - 03/03/2025 9:29 PM CDT Chief Complaint Chief Complaint Patient presents with Abscess History of Present Illness Pt presents to the ED for evaluation by ENT after being diagnosed with tonsillar abscess on CT scan. Reports odynophagia. TOlerating secretions and PO. Received steroids and toardol at outside facility. He was accepted for transfer by [facility]. However, left AMA from outside hospital as he did not wish to be transferred by ambulance service., Medical History ALLERGIES: Review of patient's allergies indicates: No Known Allergies MEDICATIONS: Prior to Admission medications Medication Sig Start Date End Date Taking? Authorizing Provider amoxicillin-clavulanate (AUGMENTIN) 875-125 MG tablet Take 1 tablet (875 mg total) by mouth 2 (two)times daily for 7 days. 03/04/25 03/11/25 Yes Johny Valdivia MD amphetamine-dextroamphetamine (ADDERALL) 15 MG tablet Take 1 tablet (15 mg total) by mouth 2 (two) times daily. Default History Genericprovider Armodafinil 150 MG Tab [...] Review of Systems Review of Systems Constitutional: Negative for fever. Respiratory: Negative for shortness of breath. Cardiovascular: Negative for chest pain. Gastrointestinal: Negative for abdominal pain. Physical Exam Filed Vitals: 03/03/25202803/03/25 2245 03/03/25 2253 BP: 139/79 109/68 Pulse: (!) 104 Resp: 14 Temp: 98.4 ??F (36.9 ??C) TempSrc: Temporal SpO2: 98% 95% 96% Weight: 92.1 kg (203 lb) Height: 1.727 m (5' 8 ) Physical Exam Vitals and nursing note reviewed. Constitutional: General: He is not in acute distress. HENT: Head: Normocephalic. Right Ear: External ear normal. Left Ear: External ear normal. Nose: Nose normal. Mouth/Throat: Mouth: Mucous membranes are moist. Pharynx: Posterior oropharyngeal erythema present. No oropharyngeal exudate. Eyes: Extraocular Movements: Extraocular movements intact. Pupils: Pupils are equal, round, and reactive to light. Cardiovascular: Rate and Rhythm: Regular rhythm. Tachycardia present. Pulmonary: Effort: Pulmonary effort is normal. No respiratory distress. Musculoskeletal: General: No deformity. Skin: General: Skin is warm and dry. Neurological: Mental Status: He is alert and oriented to person, place, and time. Diagnostic Studies / Procedures ELECTROCARDIOGRAMS: No results found for this visit on 03/03/25. LABORATORY STUDIES: No results found for this visit on 03/03/25. IMAGING STUDIES No orders to display ED Course / Medical Decision Making Medical Decision Making ENT to evaluate patient. Notified on arrival. Patient otherwise in no acute distress. Nonlabored respirations. Tolerating secretions. ENT evaluated patient. Recommend d/c with augmentin. However, prior to prescribing abx or discussing discharge with pt, he was noted to have eloped. Will send augmentin to his pharmacy. Clinical Impression Tonsillitis (Primary) Disposition: Eloped Johny Valdivia MD 03/04/252021 * Vani Sumner RN - 03/03/2025 8:29 PM CDT Pt arrives to ED for c/o abscess in his neck. Pt here for ENT. Pt was seen at [facility] and sent here. documented in this encounter Plan of Treatment Not on file documented as of this encounter Visit Diagnoses Diagnosis Tonsillitis- Primary Acute tonsillitis documented in this encounter Care Teams Underwear Trimmer Relationship Specialty Start Date End Date Favio Still MD [address] [place] [id number] PCP - General FAMILY PRACTICE 09/28/22 documented as of this encounter
--- OUTSIDE RECORDS SUMMARY | 2025-03-05 01:07 | XMS_ITS | Clinical Summary ---
Author Organization [facility] Address [facility] [place] [address] Care Team Providers Care Complaint Inspector Name Role Phone Favio Still MD Primary Care Provider Allergies No known active allergies Medications Armodafinil [...] by mouth 2 (two) times daily. Active amoxicillin-cla vulanate (AUGMENTIN) 875-125 MG tablet Take 1 tablet (875 mg total) by mouth 2 (two) times daily for 7 days. 14 tablet 5 03/11/20 25 Active Active Problems Problem Noted Date Diagnosed Date Carpal tunnel syndrome, left 04/10/2023 Carpal tunnel syndrome of right wrist 04/02/2023 Cubital tunnel syndrome on right 04/02/2023 Encounters Date Type Department Care Team Description 03/03/2025 8:31 PM CDT - 03/03/2025 11:00 PM CDT Emergency [facility] [address] [place] [address] Johny Valdivia MD Abscess Discharge Disposition: Left Against Medical Advice 03/03/2025 1:40 PM CDT - 03/03/2025 6:06 PM CDT Emergency [facility] [address] [place] [address] Inderjit Lincoln MD Facial Pain Discharge Disposition: Left Against Medical Advice 03/03/2025 Scan [facility] [address] [place] [address] [facility] 03/03/2025 Travel from Last 3 Months Family [...] 3:37 PM Narrative 03/03/2025 3:47 PM CDT [address] [place] [address] EXAM: CT SOFT TISSUE NECK W CON [...] Procedure Note Amrit Trevino MD - 03/03/[address] [place] [address] EXAM: CT SOFT TISSUE NECK W CON [...] RNA NEGATIVE NEGATIVE 03/03/2025 2:33 PM CDT [facility] Comment: NEGATIVE RESULTS DO NOT RULE [...] SPECIMEN TYPE NASAL 03/03/2025 2:03 PM CDT [facility] NASOPHARYNGEAL SWAB / Unknown 03/03/2025 2:00 PM CDT Inderjit Lincoln MD MICROBIOLOGY - GENERAL ORDERA BLES Final Result [facility] [address] [facility] [place] [address], [place] * INFLUENZA A & B (03/03/2025 2:00 PM CDT) SPECIMEN TYPE NASOPHARYNX 03/03/2025 2:03 PM CDT [facility] INFLUENZA A NEGATIVE NEGATIVE 03/03/2025 2:39 PM CDT [facility] INFLUENZA B NEGATIVE NEGATIVE 03/03/2025 2:39 PM CDT [facility] NASAL STRUCTURE / Unknown 03/03/2025 2:00 PM CDT us Inderjit Lincoln MD MICROBIOLOGY - GENERAL ORDERA BLES Final Result Performing Organization Address [facility] de Phone Number [facility] [address] [facility] [place] [address], [place] * STREP A RAPID (03/03/2025 2:00 PM CDT) SPECIMEN TYPE THROAT 03/03/2025 2:03 PM CDT [facility] RAPID STREP TEST NEGATIVE NEGATIVE 03/03/2025 2:27 PM CDT [facility] STRUCTURE OF ANTERIOR PORTION OF NECK / Unknown 03/03/2025 2:00 PM CDT Inderjit Lincoln MD MICROBIOLOGY - GENERAL ORDERA BLES Final Result Performing Organization Address [facility] Co de Phone Number [facility] [address] [facility] [place] [address], [place] * (ABNORMAL) BASIC METABOLIC PANEL (03/03/2025 2:00 PM CDT) GLUCOSE 94 70 - 99 MG/DL 03/03/2025 2:31 PM CDT [facility] BUN 16 7 - 18 MG/DL 03/03/2025 2:31 PM CDT [facility] CREATININE S/P/B 1.28(H) 0.50 - 1.20 MG/DL 03/03/2025 2:31 PM CDT [facility] SODIUM S/P/B 139 136 - 145 MMOL/L 03/03/2025 2:31 PM CDT [facility] POTASSIUM S/P/B 4.2 3.5 - 5.1 MMOL/L 03/03/2025 2:31 PM CDT [facility] CHLORIDE S/P/B 103 100 - 108 MMOL/L 03/03/2025 2:31 PM CDT [facility] CO2 30.2 21.0 - 32.0 MMOL/L 03/03/2025 2:31 PM CDT [facility] CALCIUM S/P/B 8.4(L) 8.5 - 10.1 MG/DL 03/03/2025 2:31 PM CDT [facility] ANION GAP 5.8 5.0 - 15.0 MMOL/L 03/03/2025 2:31 PM CDT [facility] BUN CREATININE RATIO 12.5 6 - 26 03/03/2025 2:31 PM CDT [facility] GFR ESTIMATE 74(L) >90 ML/MIN/1.7 3 M2 03/03/2025 2:31 PM CDT [facility] Comment: NOTE: eGFR is not calculated for patients <18 years of age. This is an estimated GFR calculation using the new CKD EPI creatinine equation without race and so does not require a correction factor for race. This estimated GFR should not be used for calculating drug doses. 03/03/2025 2:00 PM CDT us Inderjit Lincoln MD LABORATORY Final Result [facility] [address] [place] [address], * (ABNORMAL) CBC W/DIFF AUTOMATED (03/03/2025 2:00 PM CDT) WBC 11.67(H) 4.50 - 11.00 x10'3/uL 03/03/2025 2:20 PM CDT [facility] RBC 5.16 4.50 - 5.90 x10'6/uL 03/03/2025 2:20 PM CDT [facility] HGB 16.4 14.0 - 18.0 G/DL 03/03/2025 2:20 PM CDT [facility] HCT 48.3 43.0 - 54.0 % 03/03/2025 2:20 PM CDT [facility] MCV 93.6 80.0 - 100.0 FL 03/03/2025 2:20 PM CDT [facility] MCH 31.8 26.0 - 34.0 PG 03/03/2025 2:20 PM CDT [facility] MCHC 34.0 31.0 - 37.0 G/DL 03/03/2025 2:20 PM CDT [facility] RDW 13.1 11.6 - 14.8 % 03/03/2025 2:20 PM CDT [facility] PLT 281 130 - 400 x10'3/uL 03/03/2025 2:20 PM CDT [facility] MPV 9.9 7.0 - 12.0 FL 03/03/2025 2:20 PM CDT [facility] CBC COMMENT AUTOMATED RBC MORPHOLOGY AND PLATELET EVALUATION NORMAL 03/03/2025 2:20 PM CDT [facility] NEUTROPHILS % 83.6(H) 40.0 - 74.0 % 03/03/2025 2:20 PM CDT [facility] LYMPHOCYTES % 7.1(L) 14.0 - 46.0 % 03/03/2025 2:20 PM CDT [facility] MONOCYTES % 6.6 4.0 - 13.0 % 03/03/2025 2:20 PM CDT [facility] EOSINOPHILS 2.1 0.0 - 7.0 % 03/03/2025 2:20 PM CDT [facility] BASOPHILS 0.3 0.0 - 3.0 % 03/03/2025 2:20 PM CDT [facility] IMMATURE GRANS % 0.3 0.0 - 0.43 % 03/03/2025 2:20 PM CDT [facility] NRBC % 0.0 % 03/03/2025 2:20 PM CDT [facility] ABS. NEUTROPHILS TOTAL 9.76(H) 1.69 - 7.81 x10'3/uL 03/03/2025 2:20 PM CDT [facility] ABS. LYMPHOCYTES 0.83 0.21 - 5.42 x10'3/uL 03/03/2025 2:20 PM CDT [facility] ABS. MONOCYTES 0.77 0.04 - 1.37 x10'3/uL 03/03/2025 2:20 PM CDT [facility] ABS. EOSINOPHILS 0.24 0.00 - 0.68 x10'3/uL 03/03/2025 2:20 PM CDT [facility] ABS. BASOPHILS 0.04 0.00 - 0.08 x10'3/uL 03/03/2025 2:20 PM CDT [facility] ABS. IMMATURE GRANULOCYTES 0.03 0.00 - 0.06 x10'3/uL 03/03/2025 2:20 PM CDT [facility] ABS. NUCLEATED RBC'S 0.00 0.00 - 0.01 x10'3/uL 03/03/2025 2:20 PM CDT [facility] 03/03/2025 2:00 PM CDT us Inderjit Lincoln MD LABORATORY Final Result [facility] [address] [place] [address], [place] from Last 3 Months Insurance [facility] C/O PROVIDER SERVICES [place] [id number] Care Teams Complaint Inspector Relationship Specialty Start Date End Date Favio Still MD [address] [place] [address] [phone] PCP - General FAMILY PRACTICE 09/28/22
--- OUTSIDE RECORDS SUMMARY | 2025-03-05 01:07 | XMS_ITS | Encounter Summary ---
Author Organization [facility] Address [address] [place] [address] Care Team Providers Care Maintenance Aide Name Role Phone Bev Seals Primary Care Provider Favio Still MD Primary Care Provider Encounter Details Date Type Department Care Team (Late st Contact Info) Description 05/02/2019 Abstract [facility] CONVERSION [address] [place] [address] , Generic Conversion, Social History Tobacco Use [...] documented as of this encounter Care Teams Maintenance Aide Relationship Specialty Start Date End Date Bev eSals FNP [address] [place] [address] [place] [address] PCP - General Nurse Practitioner Family 12/17/1809/27/22 Favio Still MD [address] [place] [address] [phone] PCP - General FAMILY PRACTICE 09/28/22 documented as of this encounter
--- OUTSIDE RECORDS SUMMARY | 2025-03-05 01:07 | XMS_ITS | Encounter Summary ---
Author Organization [facility] Address [address] [place] [address] Care Team Providers Care Concrete Smoother Name Role Phone Favio Still MD Primary Care Provider Encounter Details Date Type Department Care Team (Late st Contact Info) Description 03/03/2025 Scan [facility] [address] [place] [address] [facility] Social History Tobacco Use [...] documented as of this encounter Care Teams Concrete Smoother Relationship Specialty Start Date End Date Favio Still MD [address] [place] [address] [phone] PCP - General FAMILY PRACTICE 09/28/22 documented as of this encounter
[2025-03-05 01:54] LABS: Lactic Acid 1.2 mmol/L (0.7-2.0)
[2025-03-05] MEDS: HYDROcodone/acetaminophen (*CRX) 5-325 MG TABLET 1 TAB PO (02:00)
== END 2025-03-05 02:22 | disposition home or self-care (01) ==
PROVIDERS: Physician Assistant; Emergency Provider Physician Assistant; PCP Family Medicine
DX: J36 Peritonsillar abscess (principal); F17.290 Nicotine dependence, other tobacco product, uncomplicated
CPT/HCPCS: 36415; 70491; 80048; 83605; 85025; 86308; 96361; 96365; 96375; 99284; A9270; J0295; J1100; J1885; J7030; Q9967